=== PATIENT | female | born 1985 | race Hispanic/Latino ===

== ENCOUNTER 2018-04-29 21:51 | Emergency (ER) | payer BC ==
[~2018-04-29] VITALS: Ht 162.6 cm; Wt 66.7 kg
[2018-04-29] MEDS ORDERED: ACETAMINOPHEN 325 MG TAB PO ONE (23:15)
--- NOTE | 2018-04-29 23:34 | Diagnostic Imaging Report ---
CXR 2 VIEW - HOPD, Technique: CXR 2 VIEW - HOPD Comparison: None Clinical history: Chest and shoulder pain DISCUSSION: Normal appearance of the heart, mediastinum, lungs and pleural spaces. IMPRESSION: No acute abnormality Signed by: Dr Zakia Crawley MD on 04/29/2018 11:33 PM
[2018-04-30 00:01] VITALS: BP 114/68
== END 2018-04-30 00:03 | disposition home or self-care (01) ==
LOC: FSED 21:51
DX: R07.89 Other chest pain (principal); R03.0 Elevated blood-pressure reading, without diagnosis of hypertension; F17.210 Nicotine dependence, cigarettes, uncomplicated
CPT/HCPCS: 71046; 80307; 81025; 84484; 93005; 99284